=== PATIENT | female | born 1980 | race Asian ===

== ENCOUNTER 2020-06-20 12:14 | Inpatient (IN) | payer OTHER ==
[2020-06-20] VITALS (8 sets, daily range): BP systolic 87–116; BP diastolic 47–76
[~2020-06-20] VITALS: Ht 165.1 cm; Wt 60.7 kg
[2020-06-20] MEDS ORDERED: ONDANSETRON 2MG/ML, 2ML ONE (13:24)
[2020-06-20] MEDS ORDERED: PANTOPRAZOLE 40 MG IV ONE ×2 (13:24→14:03)
[2020-06-20] MEDS ORDERED: PANTOPRAZOLE 40 MG IV IV ONE (13:30)
[2020-06-20] MEDS ORDERED: ONDANSETRON 2MG/ML, 2ML IVPush ONE (13:30)
[2020-06-20 13:38] LABS: MEAN CORPUSCULAR HEMOGLOBIN 23.1 pg (27.0-34.8); MEAN CORPUSCULAR HGB CONC 30.8 g/dL (32.4-35.8); PLATELET COUNT 208 x10^3/uL (130-400); RED BLOOD COUNT 3.24 x10^6/uL (3.82-5.3); RED CELL DISTRIBUTION WIDTH 27.9 % (9.6-15.2)
[2020-06-20 13:45] LABS: ALANINE AMINOTRANSFERASE 41 U/L (12-78); ALBUMIN 2.4 g/dL (3.4-5.0); ANION GAP 13 mmol/L (5-15); CALCIUM 8.3 mg/dL (8.5-10.1); CHLORIDE 108 mmol/L (98-107); CREATININE 0.66 mg/dL (0.55-1.02)
--- NOTE | 2020-06-20 13:45 | NUR ---
PT IN HOSPITAL GOWN. IV STARTED, ORDERED FLUIDS INFUSING AND PT MEDICATED FOR NAUSEA. PT NOT ACTIVILY VOMITING AT THIS TIME. PT ON ALL MONITORS. WILL CONTINUE TO MONITOR.
[2020-06-20 13:48] LABS: ALKALINE PHOSPHATASE 125 U/L (45-117); BILIRUBIN,TOTAL 4.1 mg/dL (0.2-1.0); TOTAL PROTEIN 6.7 g/dL (6.4-8.2)
[2020-06-20 13:56] LABS: MD YES
[2020-06-20 13:59] LABS: BAND#(MANUAL) 0.15 x10^3/uL; BANDS%(MANUAL) 1 % (0-7); EOS#(MANUAL) 0.15 x10^3/uL (0.0-0.4); EOS% (MANUAL) 1 % (1-7); LYMPH#(MANUAL) 1.34 x10^3/uL (1-3.4); LYMPHS% (MANUAL) 9 % (22-44); MONOS#(MANUAL) 1.94 x10^3/uL (0.3-2.7); MONOS% (MANUAL) 13 % (2-9); SEG#(MANUAL) 11.32 x10^3/uL (1.8-6.8); SEGS% (MANUAL) 76 % (42-75)
[2020-06-20] MEDS ORDERED: PANTOPRAZOLE 80 MG in SODIUM CHLORIDE 0.9% 50 ML IVPB ONE (14:00)
[2020-06-20] MEDS ORDERED: PANTOPRAZOLE 40 MG IV IVPush ONE (14:00)
[2020-06-20] MEDS ORDERED: SODIUM CHLORIDE 0.9% 1,000ML IVBOLUS ONE (14:00)
[2020-06-20 14:01] LABS: ANISOCYTOSIS 2+; HYPOCHROMIA 1+; MICROCYTOSIS 1+; POLYCHROMASIA 1+
[2020-06-20 14:02] LABS: <PLATELET ESTIMATE> ADEQUATE; <PLT MORPHOLOGY> NORMAL PLT MORPH; OVALOCYTES 1+
[2020-06-20] MEDS ORDERED: SODIUM CHLORIDE FLUSH 10ML SYR IVF ONE (14:30)
[2020-06-20] MEDS ORDERED: PROMETHAZINE 25 MG/ML, 1ML IM ONE (14:30)
[2020-06-20] MEDS ORDERED: OCTREOTIDE 500 MCG in SODIUM CHLORIDE 0.9% 99 ML IV PRN (14:30)
[2020-06-20] MEDS ORDERED: PROMETHAZINE 25 MG/ML, 1ML ONE (14:35)
[2020-06-20] MEDS ORDERED: CEFTRIAXONE PMX 1GM/50ML 50 ML ONE (14:35)
--- NOTE | 2020-06-20 14:45 | NUR ---
IV ABX STARTED. ERP DID NOT WANT BLOOD CULTURES. STATED THE ABX ARE PROPHYLACTIC FOR GI BLEED. PT ASSISTED TO BEDSIDE COMMODE. URINE SAMPLE WALKED TO LAB.
[2020-06-20] MEDS ORDERED: CEFTRIAXONE PMX 1GM/50ML 50 ML IV ONE (15:00)
--- NOTE | 2020-06-20 15:10 | NUR ---
REPORT TO DONATO BAUTISTA.
[2020-06-20] MEDS: SODIUM CHLORIDE 0.9% 1,000 ML IV SCH ×2 (15:14→23:14)
--- NOTE | 2020-06-20 15:20 | NUR ---
SPOKE AGAIN WITH ERP ABOUT STARTING SEPSIS PROTOCOL FOR PT. ERP STATED PT ELEVATED HR, WBC AND ARE NOT RELATED TO SEPSIS, BUT TO ADMITTING DX.
[2020-06-20 15:26] LABS: MICROSCOPIC AUTO
[2020-06-20] MEDS ORDERED: LABETALOL 5MG/ML, 20ML IVPush PRN (15:30)
[2020-06-20] MEDS ORDERED: PROMETHAZINE 25 MG/ML, 1ML IM PRN (15:30)
[2020-06-20] MEDS ORDERED: morphine SULFATE 10 MG/ML, 1ML IVPush PRN (15:30)
[2020-06-20] MEDS ORDERED: hydrALAzine 20 MG/ML, 1ML IVPush PRN (15:30)
[2020-06-20] MEDS ORDERED: PANTOPRAZOLE 80 MG in SODIUM CHLORIDE 0.9% 50 ML IV ONE (15:30)
[2020-06-20] MEDS ORDERED: SODIUM CHLORIDE 0.9% 500 ML IV ONE (15:30)
--- NOTE | 2020-06-20 15:45 | NUR ---
SECOND IV STARTED FOR BLOOD ADMIN. PT FAMILY AT BEDSIDE.
[2020-06-20 16:09] LABS: INTERNATIONAL NORMALIZED RATIO 1.74 (0.93-1.1); PROTHROMBIN TIME 18.5 Seconds (9.6-11.5)
[2020-06-20] MEDS ORDERED: LORA10TA75 PO (17:09)
[2020-06-20] MEDS: ONDANSETRON 2MG/ML, 2ML IVPush PRN (17:23)
[2020-06-20] MEDS ORDERED: PANT40TA3 PO (18:23)
[2020-06-20] MEDS ORDERED: FERR324T5 PO (18:23)
[2020-06-20] MEDS ORDERED: POTA10CA PO (18:23)
[2020-06-20] MEDS: PANTOPRAZOLE 80 MG in SODIUM CHLORIDE 0.9% 100 ML IV SCH (22:19)
[2020-06-20] MEDS: THIAMINE 100MG TABLET PO SCH (22:19)
[2020-06-21] MEDS: OCTREOTIDE 1,250 MCG in SODIUM CHLORIDE 0.9% 247.5 ML IV PRN (00:28)
[2020-06-21 00:33] VITALS: BP 110/70
[2020-06-21] MEDS: SODIUM CHLORIDE 0.9% 1,000 ML IV SCH ×2 (07:14→15:14)
[2020-06-21] MEDS ORDERED: PROPOFOL 50 ML ONE (07:21)
[2020-06-21] MEDS ORDERED: MIDAZOLAM 1 MG/ML, 2ML ONE (07:23)
[2020-06-21] MEDS ORDERED: CHLORHEXIDINE 15 ML UDC ONE (07:34)
[2020-06-21] MEDS ORDERED: DIAZEPAM 5 MG/ML, 2ML IVPush PRN (08:00)
[2020-06-21] MEDS ORDERED: ONDANSETRON 2MG/ML, 2ML IVPush PRN (08:00)
[2020-06-21] MEDS ORDERED: FENTANYL PF 100 MCG/2ML IV PRN (08:00)
[2020-06-21 08:45] VITALS: BP 117/73
[2020-06-21] MEDS: THIAMINE 100MG TABLET PO SCH ×2 (08:45→20:56)
[2020-06-21] MEDS: FOLIC ACID 1 MG TABLET PO SCH (08:45)
[2020-06-21] MEDS: MULTIVITAMIN 1 TABLET PO SCH (08:45)
[2020-06-21] MEDS: PANTOPRAZOLE 80 MG in SODIUM CHLORIDE 0.9% 100 ML IV SCH ×2 (08:45→22:55)
[2020-06-21 14:00] VITALS: BP 114/57
[2020-06-21 14:36] LABS: ALANINE AMINOTRANSFERASE 30 U/L (12-78); ALBUMIN 1.9 g/dL (3.4-5.0); ANION GAP 8 mmol/L (5-15); CALCIUM 7.2 mg/dL (8.5-10.1); CHLORIDE 114 mmol/L (98-107); CREATININE 0.89 mg/dL (0.55-1.02)
[2020-06-21 14:38] LABS: ALKALINE PHOSPHATASE 71 U/L (45-117); BILIRUBIN,TOTAL 3.2 mg/dL (0.2-1.0); TOTAL PROTEIN 5.3 g/dL (6.4-8.2)
[2020-06-21] MEDS: CEFTRIAXONE PMX 2GM/50ML 50 ML IV SCH ×2 (15:00→16:31)
[2020-06-21] MEDS ORDERED: APRE30TA2 PO (16:04)
[2020-06-21] MEDS ORDERED: CLOB59LO2 TP (16:04)
[2020-06-21] MEDS ORDERED: ONDA4TAB13 SL (16:04)
[2020-06-21] MEDS: LEVOFLOXACIN 750 MG TABLET PO SCH (18:38)
[2020-06-21 20:50] VITALS: BP 117/69
[2020-06-21] MEDS ORDERED: CLOBETASOL PROPIONATE CRM 0.05%, 15GM TP PRN (22:30)
[2020-06-21] MEDS: DIPHENHYDRAMINE 25 MG CAPSULE PO PRN (22:46)
[2020-06-21] MEDS: ACETAMINOPHEN 325 MG TABLET PO PRN (22:46)
[2020-06-21 23:18] VITALS: BP 115/61
[2020-06-21 23:38] VITALS: BP 123/74
[2020-06-22] MEDS: OCTREOTIDE 1,250 MCG in SODIUM CHLORIDE 0.9% 247.5 ML IV PRN (01:43)
[2020-06-22] MEDS: SODIUM CHLORIDE 0.9% 1,000 ML IV SCH (01:44)
[2020-06-22 01:48] VITALS: BP 126/75
[2020-06-22 02:54] LABS: ALANINE AMINOTRANSFERASE 27 U/L (12-78); ALBUMIN 1.8 g/dL (3.4-5.0); ANION GAP 9 mmol/L (5-15); CHLORIDE 112 mmol/L (98-107)
[2020-06-22 02:55] LABS: MD YES; MEAN CORPUSCULAR HEMOGLOBIN 26.4 pg (27.0-34.8); MEAN CORPUSCULAR HGB CONC 31.6 g/dL (32.4-35.8); MEAN PLATELET VOLUME 8.8 fL (7.4-10.4); PLATELET COUNT 109 x10^3/uL (130-400); RED BLOOD COUNT 2.78 x10^6/uL (3.82-5.3); RED CELL DISTRIBUTION WIDTH 22.3 % (9.6-15.2)
[2020-06-22 02:56] LABS: ALKALINE PHOSPHATASE 53 U/L (45-117); BILIRUBIN,TOTAL 3.7 mg/dL (0.2-1.0); TOTAL PROTEIN 4.9 g/dL (6.4-8.2)
[2020-06-22 03:20] LABS: EOS#(MANUAL) 0.43 x10^3/uL (0.0-0.4); EOS% (MANUAL) 5 % (1-7); LYMPH#(MANUAL) 1.02 x10^3/uL (1-3.4); LYMPHS% (MANUAL) 12 % (22-44); MONOS% (MANUAL) 7 % (2-9); SEG#(MANUAL) 6.46 x10^3/uL (1.8-6.8); SEGS% (MANUAL) 76 % (42-75)
[2020-06-22 03:21] LABS: ANISOCYTOSIS 2+; HYPOCHROMIA 1+; MICROCYTOSIS 1+; OVALOCYTES 1+; POLYCHROMASIA 1+
[2020-06-22 03:22] LABS: <PLATELET ESTIMATE> DECREASED; <PLT MORPHOLOGY> NORMAL PLT MORPH; ECHINOCYTES 1+
[2020-06-22] MEDS: ACETAMINOPHEN 325 MG TABLET PO PRN ×2 (06:00→21:47)
[2020-06-22 07:10] VITALS: BP 126/66
[2020-06-22] MEDS: MULTIVITAMIN 1 TABLET PO SCH (09:19)
[2020-06-22] MEDS: FOLIC ACID 1 MG TABLET PO SCH (09:19)
[2020-06-22] MEDS: LEVOFLOXACIN 750 MG TABLET PO SCH (09:19)
[2020-06-22] MEDS: THIAMINE 100MG TABLET PO SCH ×2 (09:19→21:47)
[2020-06-22] MEDS: PANTOPRAZOLE 80 MG in SODIUM CHLORIDE 0.9% 100 ML IV SCH (10:12)
[2020-06-22] MEDS ORDERED: CEFTRIAXONE PMX 2GM/50ML 50 ML IV SCH (14:30)
[2020-06-22] MEDS: PANTOPRAZOLE 40 MG IV IVPush SCH (14:41)
[2020-06-22] MEDS: DIPHENHYDRAMINE 25 MG CAPSULE PO PRN (15:00)
[2020-06-22] MEDS: ONDANSETRON 2MG/ML, 2ML IVPush PRN (15:00)
[2020-06-22 15:45] VITALS: BP 128/72
[2020-06-22] MEDS: POTASSIUM CHLORIDE 20 MEQ TAB.ER.PRT PO SCH (17:11)
[2020-06-22 20:14] VITALS: BP 127/73
[2020-06-23 00:40] VITALS: BP 132/75
[2020-06-23 01:05] VITALS: BP 122/76
[2020-06-23 01:06] VITALS: BP 122/76
[2020-06-23 03:00] VITALS: BP 129/81
[2020-06-23] MEDS: PANTOPRAZOLE 40 MG IV IVPush SCH (03:08)
[2020-06-23 04:00] VITALS: BP 135/77
[2020-06-23] MEDS: OCTREOTIDE 1,250 MCG in SODIUM CHLORIDE 0.9% 247.5 ML IV PRN (04:04)
[2020-06-23] MEDS: ACETAMINOPHEN 325 MG TABLET PO PRN (05:40)
[2020-06-23 05:58] LABS: ALANINE AMINOTRANSFERASE 28 U/L (12-78); ALBUMIN 1.9 g/dL (3.4-5.0); ANION GAP 9 mmol/L (5-15); CALCIUM 7.1 mg/dL (8.5-10.1); CHLORIDE 108 mmol/L (98-107); CREATININE 0.55 mg/dL (0.55-1.02)
[2020-06-23 06:00] LABS: ALKALINE PHOSPHATASE 63 U/L (45-117); BILIRUBIN,TOTAL 3.4 mg/dL (0.2-1.0); TOTAL PROTEIN 5.2 g/dL (6.4-8.2)
[2020-06-23 06:02] LABS: BASOPHILS % (AUTO) 0 % (0-1); EOSINOPHILS # (AUTO) 0.09 x10^3/uL (0-0.4); EOSINOPHILS % (AUTO) 1 % (1-7); LYMPHOCYTES # (AUTO) 0.69 x10^3/uL (1-3.4); LYMPHOCYTES % (AUTO) 10 % (22-44); MD NO; MEAN CORPUSCULAR HEMOGLOBIN 27.4 pg (27.0-34.8); MEAN CORPUSCULAR HGB CONC 31.9 g/dL (32.4-35.8); MEAN PLATELET VOLUME 8.8 fL (7.4-10.4); MONOCYTES # (AUTO) 0.66 x10^3/uL (0.2-0.8); MONOCYTES % (AUTO) 9 % (2-9); NEUTROPHILS # (AUTO) 5.78 x10^3/uL (1.8-6.8); NEUTROPHILS % (AUTO) 80 % (42-75); PLATELET COUNT 102 x10^3/uL (130-400); RED BLOOD COUNT 3.03 x10^6/uL (3.82-5.3); RED CELL DISTRIBUTION WIDTH 20.4 % (9.6-15.2)
[2020-06-23 06:29] VITALS: BP 131/73
[2020-06-23] MEDS ORDERED: FOLI-17 PO (08:03)
[2020-06-23] MEDS ORDERED: PANT40TA3 PO (08:03)
[2020-06-23] MEDS ORDERED: CIPR500T87 PO (08:03)
[2020-06-23] MEDS ORDERED: MULT-449 PO (08:03)
[2020-06-23] MEDS ORDERED: THIA100T67 PO (08:03)
[2020-06-23] MEDS: FOLIC ACID 1 MG TABLET PO SCH (08:42)
[2020-06-23] MEDS: POTASSIUM CHLORIDE 20 MEQ TAB.ER.PRT PO SCH (08:42)
[2020-06-23] MEDS: THIAMINE 100MG TABLET PO SCH (08:42)
[2020-06-23] MEDS: MULTIVITAMIN 1 TABLET PO SCH (08:42)
== END 2020-06-23 14:35 | disposition home or self-care (01) | DRG 432 ==
LOC: ED 16:10 → 5SO 16:34 → DCLOUNGE 06-23 14:27
PROVIDERS: ADMIT Internal Medicine; ATTEND Family Medicine
PROC: 30233N1 Transfusion of Nonautologous Red Blood Cells into Peripheral Vein, Percutaneous Approach (ICD-10-PCS; 2020-06-20)
PROC: 06L38CZ Occlusion of Esophageal Vein with Extraluminal Device, Via Natural or Artificial Opening Endoscopic (ICD-10-PCS; principal; 2020-06-21 07:30)
PROC: 02HV33Z Insertion of Infusion Device into Superior Vena Cava, Percutaneous Approach (ICD-10-PCS; 2020-06-22)
PROC: B5181ZA Fluoroscopy of Superior Vena Cava using Low Osmolar Contrast, Guidance (ICD-10-PCS; 2020-06-22)
PROC: B548ZZA Ultrasonography of Superior Vena Cava, Guidance (ICD-10-PCS; 2020-06-22)
DX: K70.30 Alcoholic cirrhosis of liver without ascites (principal); I85.11 Secondary esophageal varices with bleeding; D62 Acute posthemorrhagic anemia; F10.239 Alcohol dependence with withdrawal, unspecified; K76.6 Portal hypertension; D69.59 Other secondary thrombocytopenia; D72.829 Elevated white blood cell count, unspecified; E86.9 Volume depletion, unspecified; I86.4 Gastric varices; K31.89 Other diseases of stomach and duodenum; Z20.828 Contact with and (suspected) exposure to other viral communicable diseases; K75.9 Inflammatory liver disease, unspecified; L40.9 Psoriasis, unspecified; Z83.3 Family history of diabetes mellitus; Z90.710 Acquired absence of both cervix and uterus
CPT/HCPCS: 31500; 36415; 36573; 71045; 80053; 80307; 81001; 83690; 85014; 85018; 85025; 85610; 86850; 86900; 86923; 87040; 87086; 87635; 93005; 96361; 96372; 96374; G0378; J0696; J2250; J2354; J2405; J2550; J2704; C1751; C9113; J2270; J7030; J7040; J7050; P9016; Q0163